=== PATIENT | male | born 1960 | race African-American/Black ===

== ENCOUNTER 2016-04-14 17:18 | Emergency (ER) | payer MEDICAID ==
[2016-04-14 17:18] VITALS: BP 190/104
== END 2016-04-14 19:46 | disposition left against medical advice (07) ==
LOC: ER 17:18
DX: Z53.21 Procedure and treatment not carried out due to patient leaving prior to being seen by health care provider (principal)

== ENCOUNTER 2016-04-27 12:49 | Emergency (ER) | payer MEDICAID ==
[2016-04-27] MEDS ORDERED: LABETALOL HCL 5 MG/ML VIAL IV ONE ×2 (13:03→13:04)
[2016-04-27] MEDS ORDERED: hydrALAZINE HCL 20 MG/ML VIAL ONE ×2 (13:11→13:47)
[2016-04-27] MEDS ORDERED: hydrALAZINE HCL 20 MG/ML VIAL IV ONE (13:15)
[2016-04-27] MEDS ORDERED: MIDAZOLAM HCL/PF 5 MG/ML VIAL ONE (13:16)
[2016-04-27 13:25] LABS: Hematocrit 43.4 % (42.0-52.0); Hemoglobin 13.4 gm/dL (13.5-18.0); Mean Cell Volume 68.3 fl (78-100); Mean Corpuscular Hemoglobin 21.1 pg (27-31); Mean Corpuscular Hgb Conc 30.9 g/dl (32-36); Neutrophil # 2.2 K/mm3 (1.3-6.0); Neutrophil % 38.2 % (42-75.0); Platelet Count 226 K/mm3 (150-450); Red Blood Count 6.35 M/mm3 (4.7-6.0); Red Cell Distribution Width 17.8 % (11.5-14.0); White Blood Count 5.9 K/mm3 (4.0-10.5)
--- NOTE | 2016-04-27 13:28 | ERNOTE ---
Neuro HPI ER Record Date of Service: 04/27/16 Presenting Symptoms: weakness, numbness, parasthesia, difficulty walking Time Seen by Provider: 04/27/16 12:53 Source: patient, family - Fiance Immunizations: IMMUNIZATION HX Immunizations Up to Date Yes History of Influenza Vaccine No Hx Pneumococcal Vaccination No Allergies/Adverse Reactions: Allergies Allergy/AdvReac Type Severity Reaction Status Date / Time No Known Allergies Allergy Verified 08/08/15 12:53 Home Medications: HOME MEDICATIONS Atenolol [Tenormin] 25 mg PO DAILY 08/03/15 [Last Taken Unknown] Lisinopril 5 mg PO DAILY 08/03/15 [Last Taken Unknown] cloNIDine [Catapres-Tts 1] 1 each PO DAILY 08/03/15 [Last Taken Unknown] Cephalexin Monohydrate [Keflex] 1,000 mg PO BID #40 cap 08/04/15 [Last Taken Unknown] Hydrocodone/Acetaminophen [[place] 5-325 Tablet] 1 - 2 tab PO Q6H PRN #16 tab 11/11 [Last Taken Unknown] traMADol HCL [Ultram] 50 mg PO QID PRN #20 tab 08/08/15 [Last Taken Unknown] - History of Present Illness Date (Duration): 04/27/16 Onset: upon waking Severity: moderate - Character of Deficits New weakness: Present: RUE, RLE Altered sensation: Present: RUE, RLE Baseline Cognition: Present: alert, oriented x 4 Baseline Gait: Present: unable to walk Review of Systems - Review of Systems Constitutional: Absent: fever, chills, diaphoresis, weakness, fatigue Respiratory: Absent: shortness of breath, cough, orthopnea, wheezing Cardiology: Absent: palpitations, syncope, edema All Other Systems: All systems neg except as marked - Patient's Past Medical History Patient History - Medical: No pertinent hx Patient History - Cardiac/Respiratory: Hypertension Patient History - Cancer: No Hx of Cancer Patient History - Surgical Procedures: Other Patient History - Other: None - Social History Living Situations: home Alcohol Use: rarely Drug Use: none - Immunizations Immunizations Up to Date: Yes Hx Pneumococcal Vaccination: No History of Influenza Vaccine: No Physical Exam - Physical Exam General Appearance: Present: wd/wn, alert, no apparent distress Eye Exam: PERRL: bilateral, EOMI: bilateral Ears, Nose, Throat: Present: normal ENT inspection, hearing grossly normal, normal pharynx Neck: Present: normal inspection, nontender Respiratory: Present: no respiratory distress, normal breath sounds, no accessory muscle use, chest nontender, lungs clear Cardiovascular/Chest: Present: regular rate, rhythm, no murmur, normal peripheral pulses Gastrointestinal/Abdominal: Present: normal bowel sounds, nontender, nondistended, soft, no organomegaly Back Exam: Present: normal inspection, normal range of motion, no CVA tenderness , no vertebral tenderness Extremity Exam: Present: normal inspection, non-tender, no edema Neurological Exam: Present: alert, oriented, normal mood/affect, motor weakness Skin Exam: Present: normal color, warm/dry Lymphatic Exam: Present: no adenopathy [place] Coma Scale - Assess Eye Opening: Spontaneous Motor: Obeys Commands Verbal: Confused - Total Coma Scale Total: 14 Initial Stroke Assessment - Date/Time of assessment Stroke Scale Date: 04/27/16 Stroke Scale Time: 13:55 - NIH Stroke Scale Level of Consciousness: Drowsy LOC Questions (Year and Age): Answers both correctly LOC Commands (open/close eyes/fist): Performs both correctly Lateral Gaze Paresis: None Visual Field Loss: No visual loss Right Arm Motor (10 sec hold): Drift, effort made Left Arm Motor (10 sec hold): No drift Right Leg Motor (5 sec hold): Drift, effort made Left Leg Motor (5 sec hold): No drift Limb Ataxia (finger/nose heel/liu): Untestable Sensory Loss (pinprick arms/legs/face): Mild, aware yet dulled Language Aphasia (description/naming/reading): Mild, yet understandable Dysarthria (speech clarity): Normal articulation Neglect Inattention (visual/tactile/auditory/spatial/person): No neglect ED Progress - Vital Signs Patient's Vital Signs:: I have reviewed the patient's vital signs. - EKG EKG: NSR, nonspecific ST T wave changes EKG read: Interp. by me EKG Comments: hr 55 - CT/Ultrasound CT/Ultrasound Narrative: Acute left traumatic head bleed measuring 2 cm without any midline shift - Transfer of Care Expected Disposition: Transfer - Dr.Vanheukolm Fischer Clinical Impression: CVA (cerebrovascular accident due to intracerebral hemorrhage) Qualifiers: Intracerebral hemorrhage etiology: nontraumatic Cerebral hemorrhage location: unspecified cerebral location Laterality: left Qualified Code(s): I61.9 - Nontraumatic intracerebral hemorrhage, unspecified - Departure Disposition: [facility] Condition: Stable - Critical Care Total Time (mins): 60
[2016-04-27] MEDS ORDERED: NITROPRUSSIDE SODIUM 50 MG in DEXTROSE 5 % IN WATER 500 ML IV PRN ×2 (13:32)
[2016-04-27 13:33] LABS: Prothrombin Time (Patient) 11.5 Seconds (9.4-11.4)
[2016-04-27 13:34] LABS: INR 1.11 INR (0.90-1.10); Partial Thrombolplastin Time 28.7 Seconds (24-32)
[2016-04-27 13:39] LABS: Albumin * 3.6 gm/dl (3.4-5.0); Anion Gap 9.4 mmol/L (6.8-13.8); BUN/Creatinine Ratio 12.3 (9.0-21.6); Bilirubin, Total 0.9 mg/dL (0.0-1.1); Ca. Corrected For Albumin 9.1 mg/dL (8.4-10.2); Calcium * 9.1 mg/dL (7.9-10.9); Carbon Dioxide 29.3 mmol/L (24-32.6); Potassium 3.7 mmol/L (3.4-4.6); Total Protein 7.4 gm/dL (6.2-8.2)
[2016-04-27] MEDS ORDERED: NORMAL SALINE 1,000 ML IV ONE (13:51)
[2016-04-27 13:53] VITALS: BP 166/88
[2016-04-27] MEDS ORDERED: ONDANSETRON HCL/PF 2 MG/ML VIAL ONE (14:04)
[2016-04-27] MEDS ORDERED: ONDANSETRON HCL/PF 2 MG/ML VIAL IV ONE (14:05)
== END 2016-04-27 14:20 | disposition short-term general hospital (02) ==
LOC: ER 12:49
DX: I61.9 Nontraumatic intracerebral hemorrhage, unspecified (principal); G81.91 Hemiplegia, unspecified affecting right dominant side; I67.4 Hypertensive encephalopathy

== ENCOUNTER 2020-01-09 19:01 | Observation (INO) ==
[2020-01-09] MEDS ORDERED: LABETALOL HCL 5 MG/ML VIAL IV ONE ×4 (19:11→23:34)
[2020-01-09] MEDS ORDERED: NICARDIPINE HCL 25 MG in NORMAL SALINE 240 ML IV PRN (19:17)
--- NOTE | 2020-01-09 19:21 | ERNOTE ---
Neuro HPI ER Record Date of Service: 01/09/20 Presenting Symptoms: impaired speech Time Seen by Provider: 01/09/20 19:15 Source: patient Exam Limitations: clinical condition Immunizations: IMMUNIZATION HX Immunizations Up to Date Yes History of Influenza Vaccine No Hx Pneumococcal Vaccination No Allergies/Adverse Reactions: Allergies Allergy/AdvReac Type Severity Reaction Status Date / Time No Known Allergies Allergy Verified 01/09/20 19:19 Home Medications: HOME MEDICATIONS NK 01/09/20 [Last Taken Unknown] - History of Present Illness Narrative: Patient presents via EMS with headache and trouble with speech. He is a difficult historian coupled with speech abnormality. He has had a headache all day, top of head. No trauma. He has had difficulty with speech for two hours. He is not sure how he knows that but friends at the house he was at think they noted it 2 hours ago. He thinks it may have been there earlier today as well but not as bad. No Cp or SOB. No focal N/T/W. Nothing makes this better or worse. Has not seen anyone else for this. EMS brought the patient to the ED. Onset: other - see above Severity: moderate - Character of Deficits New weakness: Present: other - denies weakness in extremities Additional Deficits: Present: impaired speech. Absent: vision problems, difficulty swallowing Baseline Gait: Present: walks w/o assistance Associated Symptoms: Reports: headache. Denies: fever/chills, chest pain, neck/back pain, seizure, decreased responsiveness Prior Treament: Reports: other - apparently does not take his BP medications, medication non-compliant. Denies: recently seen Review of Systems - Narrative Narrative: unable to obtain in entirety due to speech difficulty and clinical condition Medical History (Last Reviewed 01/09/20 @ 19:43 by Agustin Bermudez MD) Intracerebral hemorrhage (Acute) Onset Date: ~04/27/16 Hypertension (Chronic) Onset Date: Unknown Surgical History: Surgical History (Last Reviewed 01/09/20 @ 19:43 by Agustin Bermudez MD) H/O left knee surgery (Acute) History of ankle surgery Onset Date: ~1979 left ankle Family History: Family History (Last Reviewed 01/09/20 @ 19:43 by Agustin Bermudez MD) Father Myocardial infarction Mother , age 50 CVA (cerebral vascular accident) Social History: (Last Reviewed 01/09/20 @ 19:43 by Agustin Bermudez MD) Social History: snf: No Marital status: single lives independently: Yes current occupational status: employed current occupation: computer information science professor Highest education level completed: some college, no degree Service: No Tobacco: Smoking Status: Never smoker Alcohol: alcohol intake: never Substance Use: substance use type: does not use Dietary Habits: caffeine: No Physical Exam - Physical Exam General Appearance: Present: alert, no apparent distress Head Exam: Present: normal inspection, no evidence of injury Eye Exam: Normal inspection: bilateral, PERRL: bilateral Ears, Nose, Throat: Present: normal ENT inspection Neck: Present: normal inspection Respiratory: Present: no respiratory distress, normal breath sounds, no accessory muscle use, lungs clear Cardiovascular/Chest: Present: regular rate, rhythm, normal peripheral pulses Gastrointestinal/Abdominal: Present: normal bowel sounds, nontender, nondistended, soft Back Exam: Absent: CVA tenderness (R), CVA tenderness (L) Extremity Exam: Present: no edema, other - no deformity Neurological Exam: Present: alert, other - He has dysarticulate speech. No other clear acute cranial nerve deficits. No clear pronator drift or dysmetria. Can hold both legs off the bed against gravity. NIH - 2 Skin Exam: Present: normal color, warm/dry Progress - Results and Orders Patient's Lab Results:: I have reviewed the patient's lab results. - Vital Signs Patient's Vital Signs:: I have reviewed the patient's vital signs. Vital Signs: Vital Signs 01/09/20 19:14 01/09/20 19:20 Temperature 36.9 C Pulse Rate 59 L 58 L Respiratory Rate 15 Blood Pressure 223/124 H 211/115 H O2 Sat by Pulse Oximetry 98 - EKG EKG #1 EKG: NSR EKG read: Interp. by me EKG Comments: Sinus bradycardia rate 57. LAFB. Non-specific ST/T wave cahnges, no STEMI noted. Minimally changed from prior. - Progress/Reassessment Chief Complaint: General Assessment Progress Note-Subjective: 01/09/20 20:11 Patient had Labetalol and Nicardepine drip.; With this his BP came down nicely and his speech issues cleared up. He was speaking normally. Transfer not possible d/t bed availability in the region. No SCU beds available here but as his Sx have resolved and his BP has come down he will be taken off the drip and given oral meds and intermittent IV meds. This was discussed with Dr Peguero who is agreeable and will see the patient. No signs of ICH or ACS. Sx resolved. Not a candidate for tPA given BP, resolved Sx and prior ICH. Patient is agreeable. Departure Clinical Impression: HTN (hypertension), Hypertensive crisis, Difficulty with speech, Non compliance w medication regimen - Departure Disposition: Still a patient Condition: Fair
[2020-01-09 19:35] LABS: Hematocrit 41.9 % (42.0-52.0); Hemoglobin 12.6 gm/dL (13.5-18.0); Mean Cell Volume 71.7 fl (78-100); Mean Corpuscular Hemoglobin 21.6 pg (27-31); Mean Corpuscular Hgb Conc 30.1 g/dl (32-36); Neutrophil # 3.8 K/mm3 (1.3-6.0); Neutrophil % 55.7 % (42-75.0); Platelet Count 252 K/mm3 (150-450); Red Blood Count 5.84 M/mm3 (4.7-6.0); Red Cell Distribution Width 15.4 % (11.5-14.0); White Blood Count 6.7 K/mm3 (4.0-10.5)
[2020-01-09 19:42] LABS: INR 1.18 INR (0.92-1.08); Partial Thrombolplastin Time 26.6 Seconds (24-32); Prothrombin Time (Patient) 11.6 Seconds (9.1-10.7)
[2020-01-09 19:48] LABS: Albumin * 3.5 gm/dl (3.4-5.0); Anion Gap 12.7 mmol/L (6.8-13.8); BUN/Creatinine Ratio 9.2 (9.0-21.6); Bilirubin, Total 0.4 mg/dL (0.0-1.1); Ca. Corrected For Albumin 9.1 mg/dL (8.4-10.2); Carbon Dioxide 29.7 mmol/L (24-32.6); Potassium 3.4 mmol/L (3.4-4.6); Total Protein 7.7 gm/dL (6.2-8.2); Troponin I 0.076 ng/mL (0.00-0.10)
[2020-01-09] MEDS ORDERED: ACETAMINOPHEN 500 MG TABLET PO PRN (20:25)
[2020-01-09] MEDS ORDERED: ACETAMINOPHEN 325 MG TABLET PO PRN (20:25)
[2020-01-09] MEDS: METOPROLOL TARTRATE 50 MG TABLET PO SCH (20:32)
--- NOTE | 2020-01-09 20:54 | HP ---
Chief Complaint - Chief Complaint Date of Service: 01/09/20 Time of Service: 20:41 Chief Complaint: I had a headache and slurred speech earlier today History of Present Illness: 59-year-old -Gabonese male with past medical history of hypertension, intracerebral hemorrhage, and chronic kidney disease was brought to the ER by EMS for evaluation of significantly elevated blood pressure and headache. Patient reports earlier while doing outdoor chores with his friend he suddenly developed slurred speech and difficulty communicating. His friend became alarmed when suddenly the patient could not express himself and was presenting strokelike symptoms. The patient reports developing a an excruciating headache shortly after his symptoms began. He reports going home shortly after that but his headache intensified and he slurred speech got worse. Patient also developed weakness in his right hand. EMS was called and when they arrived they discovered a blood pressure above 230/110. The patient was administered antihypertensive and was taken to the ER. Once in the ER the patient was diagnosed with a hypertensive emergency and was started on a drip of labetalol, with that his blood pressure slightly improved and he has neurological symptoms resolved. The patient underwent a head CT which revealed only chronic findings and was negative for any acute changes. He EKG was also non-concerning. The patient denied any shortness of breath or chest pain but continued to complain of headache. Now he reports his headache is slightly improving. The patient had a similar episode 2 years ago and was discovered to have a intracerebral hemorrhage, he was subsequently transferred to [facility] where he was treated for his bleed and a hypertensive emergency. Since then the patient has not been going to the doctor and has stopped taking his medications several months ago due to an inability to refill his medications. He does not even recall which medications he was taking. The patient reports difficulty with transportation to go to the doctor regularly due to the fact that his license was revoked and he is unable to drive, he says he does not have anybody to take him to the doctor making follow-up difficult. Medical History (Last Reviewed 01/09/20 @ 19:43 by Agustin Bermudez MD) Intracerebral hemorrhage (Acute) Onset Date: ~04/27/16 Hypertension (Chronic) Onset Date: Unknown Surgical History: Surgical History (Last Reviewed 01/09/20 @ 19:43 by Agustin Bermudez MD) H/O left knee surgery (Acute) History of ankle surgery Onset Date: ~1979 left ankle Family History: Family History (Last Reviewed 01/09/20 @ 19:43 by Agustin Bermudez MD) Father Myocardial infarction Mother , age 50 CVA (cerebral vascular accident) Social History: (Last Reviewed 01/09/20 @ 19:43 by Agustin Bermudez MD) Social History: shelter: No Marital status: single lives independently: Yes current occupational status: employed current occupation: computer sciences professor Highest education level completed: some college, no degree Service: No Tobacco: Smoking Status: Never smoker Alcohol: alcohol intake: never Substance Use: substance use type: does not use Dietary Habits: caffeine: No Peds Patient Hx - Developmental: No Pertinent Hx Peds Patient Hx - Medical: No Pertinent Hx Peds Patient Hx - Cardiac/Respiratory: No Pertinent Hx Peds Patient Hx - Surgical: No Surgical History Patient History - Cancer: No Hx of Cancer Review Of Systems (GEN) - Review of Systems Generalized/Overall Review: Present: No Symptoms Reported EENTM: Present: No Symptoms Reported Respiratory: Present: No Symptoms Reported Cardiac: Present: No Symptoms Reported Abdominal: Present: No Symptoms Reported Genitourinary: Present: No Symptoms Reported Musculoskeletal: Present: No Symptoms Reported Neurological: Present: Headache, Weakness - Weakness in right upper extremity, Other - Slurred speech Skin: Present: No Symptoms Reported Endocrine: Present: No Symptoms Reported Immunizations: IMMUNIZATION HX Immunizations Up to Date Yes History of Influenza Vaccine No Hx Pneumococcal Vaccination No Allergies/Adverse Reactions: Allergies Allergy/AdvReac Type Severity Reaction Status Date / Time No Known Allergies Allergy Verified 01/09/20 19:19 Home Medications: HOME MEDICATIONS NK 01/09/20 [Last Taken Unknown] Exam - Exam Vital Signs: Vital Signs - Last Taken Temp 36.7 C 01/09/20 20:33 Pulse 66 01/09/20 20:33 Resp 17 01/09/20 20:33 BP 186/108 H 01/09/20 20:33 Pulse Ox 98 01/09/20 20:33 Constitutional: Present: Alert, Oriented x3, Cooperative, Well developed, Well nourished, No distress ENT Exam: Present: normal ENT inspection, hearing grossly normal, pharynx normal, TMs normal Eye Exam: bilateral eye: normal inspection, PERRL, EOMI Neck: Present: non-tender, full range of motion, supple, normal inspection, trachea midline Back Exam: Present: normal inspection, no CVA tenderness, no vertebral tenderness Breasts: Present: Exam deferred Respiratory: Present: chest non-tender, lungs clear, normal breath sounds, no respiratory distress, no accessory muscle use Cardiovascular/Chest: Present: normal peripheral pulses, regular rate, rhythm, no chest tenderness, no edema, no gallop, no JVD, no murmur, no rub Peripheral Pulses: dorsalis-pedis (R): 3+, dorsalis-pedis (L): 3+ Abdomen: Present: Normal bowel sounds, soft, nontender, nondistended, no rebound tenderness, no hepatospenomegaly, no masses /Rectal: Present: Exam deferred Extremity: Present: normal range of motion, non-tender, normal inspection, no pedal edema, no calf tenderness, normal capillary refill, pelvis stable Skin Exam: Present: normal color, warm/dry, no cyanosis Lymphatic: Present: no adenopathy Neurologic: Present: extension forester II-XII nml as tested, normal cerebellar test, no motor/sensory deficits, alert, normal mood/affect, oriented x 3 Appearance: Present: appropriate appearance, appropriate insight, neat, no memory impairment Eye contact: Present: cooperative, good eye contact, normal speech Thoughts: Present: normal thought pattern, no apparent hallucination Diagnostic Studies: Abnormal Lab Results 01/09/20 01/09/20 01/09/20 Range/Units 19:24 19:24 19:24 Hgb 12.6 L (13.5-18.0) gm/dL Hct 41.9 L (42.0-52.0) % MCV 71.7 L (78-100) fl MCH 21.6 L (27-31) pg MCHC 30.1 L (32-36) g/dl RDW 15.4 H (11.5-14.0) % Monocytes % 10.4 H (0.0-9) % Eosinophils % 4.2 H (0.0-3.0) % PT 11.6 H (9.1-10.7) Seconds INR (Anticoag Therapy) 1.18 H (0.92-1.08) INR Sodium 144 H (132-142) mmol/L Plasma Sodium 144 H (130-142) mmol/L Creatinine 2.40 H (0.4-1.4) mg/dL Est GFR (Non-Af Amer) 36 L D (60-130) mL/min ALT 14 L (19-67) U/L Laboratory Results WBC 6.7 K/mm3 (4.0-10.5) 01/09/20 19:24 RBC 5.84 M/mm3 (4.7-6.0) 01/09/20 19:24 Hgb 12.6 gm/dL (13.5-18.0) L 01/09/20 19:24 Hct 41.9 % (42.0-52.0) L 01/09/20 19:24 MCV 71.7 fl (78-100) L 01/09/20 19:24 MCH 21.6 pg (27-31) L 01/09/20 19:24 MCHC 30.1 g/dl (32-36) L 01/09/20 19:24 RDW 15.4 % (11.5-14.0) H 01/09/20 19:24 Plt Count 252 K/mm3 (150-450) 01/09/20 19:24 Immature Gran % (Auto) 0.30 % (0.001-0.429) 01/09/20 19: Immature Gran # (Auto) 0.02 K/mm3 (0.000-0.0310) 01/09/20 19:24 Neutrophils % 55.7 % (42-75.0) 01/09/20 19:24 Lymphocytes % 28.7 % (20-51) 01/09/20 19:24 Monocytes % 10.4 % (0.0-9) H 01/09/20 19:24 Eosinophils % 4.2 % (0.0-3.0) H 01/09/20 19:24 Basophils % 0.7 % (0.0-1.0) 01/09/20 19:24 Nucleated RBC % 0.0 k/mm3 (0-1) 01/09/20 19: Neutrophils # 3.8 K/mm3 (1.3-6.0) 01/09/20 19:24 Lymphocytes # 1.93 k/mm3 (1.5-3.5) 01/09/20 19:24 Monocytes # 0.7 k/mm3 (0.0-1.0) 10/13/20 19:24 Eosinophils # 0.3 k/mm3 (0.0-0.7) 01/09/20 19:24 Absolute Basophils 0.1 k/mm3 (0.0-0.1) 01/09/20 19:24 PT 11.6 Seconds (9.1-10.7) H 01/09/20 19:24 INR (Anticoag Therapy) 1.18 INR (0.92-1.08) H 01/09/20 19:24 PTT ([place]) 26.6 Seconds (24-32) 01/09/20 19:24 Sodium 144 mmol/L (132-142) H 01/09/20 19:24 Plasma Sodium 144 mmol/L (130-142) H 01/09/20 19:24 Potassium 3.4 mmol/L (3.4-4.6) 01/09/20 19:24 Chloride 105 mmol/L (97-106) 01/09/20 19:24 Carbon Dioxide 29.7 mmol/L (24-32.6) 01/09/20 19:24 Anion Gap 12.7 mmol/L (6.8-13.8) 01/09/20 19:24 BUN 22 mg/dL (6-23) 01/09/20 19:24 Creatinine 2.40 mg/dL (0.4-1.4) H 01/09/20 19:24 Est GFR (Non-Af Amer) 36 mL/min (60-130) L D 01/09/20 19:24 BUN/Creatinine Ratio 9.2 (9.0-21.6) 01/09/20 19:24 Random Glucose 108 mg/dL (70-110) 01/09/20 19:24 Calcium 9.0 mg/dL (7.9-10.9) 01/09/20 19:24 Calcium Adj for Albumin 9.1 mg/dL (8.4-10.2) 01/09/20 19:24 Total Bilirubin 0.4 mg/dL (0.0-1.1) 01/09/20 19:24 AST 11 U/L (0-48) 01/09/20 19:24 ALT 14 U/L (19-67) L 01/09/20 19:24 Alkaline Phosphatase 87 U/L (50-170) 01/09/20 19:24 Troponin I 0.076 ng/mL (0.00-0.10) 01/09/20 19:24 Total Protein 7.7 gm/dL (6.2-8.2) 01/09/20 19:24 Albumin 3.5 gm/dl (3.4-5.0) 01/09/20 19:24 Ethyl Alcohol 3.0 mg/dL (0.0-10.0) 01/09/20 19:24 Assessment/Plan - Narrative Narrative: Patient was evaluated medical chart was reviewed and decision to admit for observation on [facility] unit for diagnosis of hypertensive emergency was made. Patient's head CT only revealed chronic changes such as small ischemic vessel disease and an old lacunar infarct. There was no evidence of acute bleed or acute ischemic stroke. His neurological symptoms have completely resolved and he reports significant improvement of the headache. Patient was originally placed on a Nicardipine drip and was treated with IV labetalol while in the ER and since then his blood pressure has improved. However [facility] his blood pressure has slightly increased, will treat him with p.o. antihypertensives in order to bring his blood pressure under control. During the admission the patient was counseled on the importance of keeping follow-up appointments and taking his medication as prescribed in order to prevent recurrence of in hypertensive emergency and worsening of his kidney function. He was informed that he was found to have chronic kidney disease most likely secondary to his hypertension. - Assessment/Plan (1) Chronic hypertension Problem: Acute (2) Hypertensive crisis Problem: Acute (3) TIA (transient ischemic attack) Problem: Acute (4) CKD (chronic kidney disease) stage 3, GFR 30-59 ml/min Problem: Acute (5) Non-compliant patient Problem: Acute (6) Small vessel disease Problem: Acute (7) Old lacunar stroke without late effect Problem: Acute (8) Hypernatremia Problem: Acute
[2020-01-09] MEDS ORDERED: ACETAMINOPHEN 500 MG TABLET ONE (20:55)
[2020-01-09] MEDS: FAMOTIDINE 20 MG TABLET PO SCH (21:05)
[2020-01-09 21:22] LABS: Urine Bilirubin Negative (NEGATIVE); Urine Blood Negative /ul (NEGATIVE); Urine Ketone Negative (NEGATIVE); Urine Nitrite Negative (NEGATIVE); Urine Protein 30 mg/dL (NEGATIVE); Urine Urobilinogen Normal (NORMAL)
[2020-01-09 21:35] LABS: Urine Appearance Clear (CLEAR); Urine Color Yellow; Urine RBC None Seen /hpf (0-5); Urine WBC TRACE /hpf (0-5)
[2020-01-09 21:36] LABS: Urine Bacteria TRACE; Urine Hyaline Cast TRACE /LPF
[2020-01-09] MEDS ORDERED: amLODIPine BESYLATE 10 MG TABLET PO ONE (21:42)
[2020-01-09] MEDS ORDERED: LABETALOL HCL 5 MG/ML VIAL IV PRN ×2 (23:10)
[2020-01-09] MEDS ORDERED: cloNIDine 0.1 MG PATCH.TDWK TD SCH (23:15)
[2020-01-10] MEDS: METOPROLOL TARTRATE 50 MG TABLET PO SCH (08:07)
[2020-01-10] MEDS: FAMOTIDINE 20 MG TABLET PO SCH (08:08)
[2020-01-10] MEDS ORDERED: cloNIDine 0.1 MG PATCH.TDWK TD SCH (08:15)
[2020-01-10] MEDS ORDERED: LISINOPRIL 20 MG TABLET PO SCH (09:15)
[2020-01-10] MEDS ORDERED: amLODIPine BESYLATE 10 MG TABLET PO SCH (09:15)
[2020-01-10 14:33] VITALS: BP 159/93
--- NOTE | 2020-01-10 15:04 | DS ---
(1) Chronic hypertension Problem: Chronic (2) Hypertensive crisis Problem: Resolved (3) TIA (transient ischemic attack) Problem: Resolved (4) CKD (chronic kidney disease) stage 3, GFR 30-59 ml/min Problem: Chronic (5) Non-compliant patient Problem: Chronic (6) Small vessel disease Problem: Chronic (7) Old lacunar stroke without late effect Problem: Chronic (8) Hypernatremia Problem: Acute Date of Discharge:: 01/10/20 Hospital Course: 59-year-old -[place] male admitted for a hypertensive crisis and a TIA was evaluated bedside was found to be afebrile and in no acute distress. After managing the patient's blood pressure with multiple agents his blood pressure has improved significantly. He also reports improvement in his headache. The patient's neurological symptoms have also resolved although his cognitive function is a little bit delayed, it is difficult to determine if this is new or if the patient is at his baseline. However after confirming improvement of his blood pressure we have decided to discharge the patient home with instructions to continue taking the prescribed oral antihypertensives and to establish with a PCP. It was explained to the patient that it is very important that he gets another doctor to manage his hypertension. It was explained to him that this is particularly important to avoid worsening of his chronic kidney disease which is most likely due to uncontrolled blood pressure. An appointment was set up with myself for him to follow-up with me in the internal medicine clinic here at [facility]. He will be sent home with a prescription for all his oral antihypertensive, we reinitiated all of his previous antihypertensives. Patient has issues with insurance but I will work with correctional counselor/case manager to try to find resolution so that he is able to establish with a doctor and that the patient can continue follow-up with condition. Procedures Performed: none Results and Findings: Lab Pending Results 01/09/20 19:24: WBC 6.7, RBC 5.84, Hgb 12.6 L, Hct 41.9 L, MCV 71.7 L, MCH 21.6 L, MCHC 30.1 L, RDW 15.4 H, Plt Count 252, Immature Gran % (Auto) 0.30, Immature Gran # (Auto) 0.02, Neutrophils % 55.7, Lymphocytes % 28.7, Monocytes % 10.4 H, Eosinophils % 4.2 H, Basophils % 0.7, Nucleated RBC % 0.0, Neutrophils # 3.8, Lymphocytes # 1.93, Monocytes # 0.7, Eosinophils # 0.3, Absolute Basophils 0.1 01/09/20 19:24: Sodium 144 H, Plasma Sodium 144 H, Potassium 3.4, Chloride 105, Carbon Dioxide 29.7, Anion Gap 12.7, BUN 22, Creatinine 2.40 H, Est GFR (Non-Af Amer) 36 L D, BUN/Creatinine Ratio 9.2, Random Glucose 108, Calcium 9.0, Calcium Adj for Albumin 9.1, Total Bilirubin 0.4, AST 11, ALT 14 L, Alkaline Phosphatase 87, Troponin I 0.076, Total Protein 7.7, Albumin 3.5, Ethyl Alcohol 3.0 01/09/20 19:24: PT 11.6 H, INR (Anticoag Therapy) 1.18 H, PTT (Rafia) 26.6 01/09/20 20:35: Urine Color Yellow, Urine Appearance Clear, Urine pH 7.0, Ur Specific [place] 1.020, Urine Protein 30 H, Urine Glucose (UA) Negative, Urine Ketones Negative, Urine Blood Negative, Urine Nitrate Negative, Urine Bilirubin Negative, Prot Sulfosalicylic Acd 1+, Urine Urobilinogen Normal, Ur Leukocyte Esterase Negative, Urine RBC None seen, Urine WBC Trace, Ur Epithelial Cells None seen, Urine Bacteria Trace, Hyaline Casts Trace, Urine Culture Comments No culture indicated Discharge Location: Home Disposition: Home self-care Condition: Fair Face to Face Encounter completed per [facility] Guidelines: No Discharge Activity: Activity as tolerated Discharge Diet: Low salt Problem Oriented Discharge Instructions to Patient/Family: Hypertension, Adult, [id number] Additional Patient Instructions (free text): Follow-up appointment is with Dr. Peguero on January 14 at 2:30 PM. Will need to bring $100.00 for doctor visit as your insurance does not cover [facility] clinic patients, or be set up with [facility] in [place] or [place] . Prescriptions (Any new or edited meds): Metoprolol Tartrate [Lopressor] 50 mg PO Q12H #60 tab Transmission Status: Received by [facility], [place], [place] amLODIPine BESYLATE [Norvasc] 10 mg PO DAILY #90 tab Transmission Status: Received by [facility], [place], [place] Lisinopril [Zestril] 20 mg PO DAILY #90 tab Transmission Status: Received by [facility], [place], [place] Complete Home Medications List: Complete Home Medication List: Lisinopril [Zestril] 20 mg PO DAILY #90 tab 01/10/20 Metoprolol Tartrate [Lopressor] 50 mg PO Q12H #60 tab 01/10/20 amLODIPine BESYLATE [Norvasc] 10 mg PO DAILY #90 tab 01/10/20
== END 2020-01-10 15:45 | disposition home or self-care (01) ==
LOC: MS 19:01 → ER 19:01 → MS 20:30
PROVIDERS: ADMIT Family Medicine; ATTEND Family Medicine

== ENCOUNTER 2020-02-14 14:28 | Observation (INO) ==
[2020-02-14] MEDS ORDERED: LABETALOL HCL 5 MG/ML VIAL IV ONE (15:15)
--- NOTE | 2020-02-14 15:16 | ERNOTE ---
Headache ER HPI - Narrative Date of Service: 02/14/20 - General Presenting Symptoms: headache Time Seen by Provider: 02/14/20 15:02 Source: patient, RN notes reviewed, old records Exam Limitations: no limitations - Immun/Allergies/Home Medications Immunizations: IMMUNIZATION HX Immunizations Up to Date Yes History of Influenza Vaccine No Hx Pneumococcal Vaccination No Allergies/Adverse Reactions: Allergies No Known Allergies Allergy (Verified 01/09/20 21:05) Home Medications: HOME MEDICATIONS Lisinopril [Zestril] 20 mg PO DAILY #90 tab 01/10/20 [Last Taken Unknown] Metoprolol Tartrate [Lopressor] 50 mg PO Q12H #60 tab 01/10/20 [Last Taken Unknown] amLODIPine BESYLATE [Norvasc] 10 mg PO DAILY #90 tab 01/10/20 [Last Taken Unknown] - History of Present Illness Narrative: Nelson is a 59-year-old male who presents to the emergency department for headache. He reports this has been going on for 2 days. He believes it is because of elevated blood pressure. He was hospitalized for hypertension just over a month ago. He missed his follow-up appointment but reports that he has been taking his blood pressure medications as prescribed. He has not taken anything for his headache. He also reports having a cough, fatigue and body aches. He has been around a friend who tested positive for COVID-19. Timing of Headache: gradual, still present, constant Context Headache: Present: new onset. Absent: recent head injury > 24 hrs Headache frequency: Present: no recent headache Associated Symptoms: Reports: fatigue, light-headedness, dizziness. Denies: fever/chills, nausea, vomiting, nasal congestion, nasal drainage, vision changes Exacerbated by:: Denies: light, noise, movement Prior Treament: Reports: recently seen, similar symptoms before Review of Systems - Review of Systems Constitutional: Present: fatigue, malaise. Absent: fever, chills EYE: Absent: eye pain, vision changes ENT: Absent: ear pain, nose congestion, nasal drainage, sore throat Respiratory: Present: cough. Absent: shortness of breath Cardiology: Absent: chest pain, edema Gastrointestinal/Abdominal: Absent: nausea, vomiting, abdominal pain Genitourinary: Present: no symptoms reported Musculoskeletal: Present: muscle pain, joint pain Skin: Absent: rash, lesions Neurological: Present: headache. Absent: dizziness/light-headedness Endocrine: Present: no symptoms reported Hematologic/Lymphatic: Absent: easy bruising, easy bleeding Psych: Present: no symptoms reported Medical History (Last Reviewed 02/14/20 @ 17:00 by Kathryn Weir NP) Intracerebral hemorrhage (Acute) Onset Date: ~04/27/16 Hypertension (Chronic) Onset Date: Unknown CVA (cerebral vascular accident) Surgical History: Surgical History (Last Reviewed 02/14/20 @ 17:00 by Kathryn Weir NP) H/O left knee surgery (Acute) History of ankle surgery Onset Date: ~1979 left ankle Family History: Family History (Last Reviewed 02/14/20 @ 17:00 by Kathryn Weir NP) Father Myocardial infarction Mother , age 50 CVA (cerebral vascular accident) Social History: (Last Reviewed 02/14/20 @ 17:00 by Kathryn Weir NP) Social History: chcf: No Marital status: single lives independently: Yes current occupational status: employed current occupation: cnc operator programmer Highest level of school completed/degree received: some college, no degree Service: No Tobacco: Smoking Status: Never smoker Alcohol: alcohol intake: current alcohol intake frequency: holiday/special occasion counseling given: No Substance Use: substance use type: does not use counseling given: Yes counseling given comment: discussed with patient on use on illegal drugs Dietary Habits: caffeine: No Physical Exam - Physical Exam General Appearance: Present: wd/wn, alert, other - In no acute distress but appears to not feel well, fatigued, yawns frequently Head Exam: Present: normal inspection Eye Exam: Normal inspection: bilateral, PERRL: bilateral, EOMI: bilateral Ears, Nose, Throat: Present: normal ENT inspection, normal pharynx Neck: Present: normal inspection, nontender, supple, full range of motion Respiratory: Present: no respiratory distress, normal breath sounds, no accessory muscle use, lungs clear Cardiovascular/Chest: Present: no murmur, bradycardia Extremity Exam: Present: normal inspection, no edema Neurological Exam: Present: alert, oriented, no motor/sensory deficits, other - flat affect. Absent: normal mood/affect Skin Exam: Present: normal color, warm/dry Progress - Results and Orders Patient's Lab Results:: I have reviewed the patient's lab results. - Vital Signs Patient's Vital Signs:: I have reviewed the patient's vital signs. Vital Signs: Vital Signs 02/14/20 14:40 Temperature 36.4 C Pulse Rate 57 L Respiratory Rate 16 Blood Pressure 171/107 H O2 Sat by Pulse Oximetry 98 - EKG EKG #1 EKG: NSR EKG read: Reviewed by me - Progress/Reassessment Chief Complaint: Headache Progress:: Improved Plan - Plan Plan: The patient's blood pressure was unchanged after labetolol IVP. He was then given Hydralazine with some improvement. He continued to report a headache and was given IV Tylenol. His lab work shows worsening of his renal failure. He has also had a liter of IV NS. Dr. Burnette was contacted and agreed to admit the patient. A COVID test was done prior to the patient going to med/surg and is positive. Departure Clinical Impression: Hypertensive urgency, COVID-19 Acute on chronic renal failure Qualifiers: Acute renal failure type: unspecified Chronic kidney disease stage: unspecified stage Qualified Code(s): N17.9 - Acute kidney failure, unspecified - Departure Disposition: Still a patient Condition: Stable
[2020-02-14] MEDS ORDERED: NORMAL SALINE 1,000 ML IV ONE (15:29)
[2020-02-14 15:39] LABS: Hematocrit 47.3 % (42.0-52.0); Hemoglobin 14.2 gm/dL (13.5-18.0); Platelet Count 192 K/mm3 (150-450); Red Blood Count 6.76 M/mm3 (4.7-6.0); Red Cell Distribution Width 18.3 % (11.5-14.0)
[2020-02-14 15:43] LABS: Total Cells Counted 100
[2020-02-14 15:52] LABS: Albumin * 3.9 gm/dl (3.4-5.0); Anion Gap 12.2 mmol/L (6.8-13.8); BUN/Creatinine Ratio 9.5 (9.0-21.6); Bilirubin, Total 0.6 mg/dL (0.0-1.1); Ca. Corrected For Albumin 9.1 mg/dL (8.4-10.2); Calcium * 9.3 mg/dL (7.9-10.9); Carbon Dioxide 27.1 mmol/L (24-32.6); Potassium 4.3 mmol/L (3.4-4.6); Total Protein 8.4 gm/dL (6.2-8.2)
[2020-02-14 16:17] LABS: Band 3 % (0-2.0); Eosinophil 2 % (0-3); Lymphocyte 27 % (20-51); Monocyte 30 % (0-9); Neutrophil 38 % (42-75); Neutrophil # 1.9 K/mm3 (1.3-6.0)
[2020-02-14 16:18] LABS: Platelet Estimate Normal (NORMAL)
[2020-02-14] MEDS ORDERED: hydrALAZINE HCL 20 MG/ML VIAL IV ONE (16:19)
[2020-02-14 16:20] LABS: Hypochromia 1+
[2020-02-14 16:21] LABS: Microcytosis 1+; Poikilocytosis 1+
[2020-02-14 17:49] LABS: Urine Bilirubin Negative (NEGATIVE); Urine Blood Negative /ul (NEGATIVE); Urine Ketone Negative (NEGATIVE); Urine Nitrite Negative (NEGATIVE); Urine Protein 30 mg/dL (NEGATIVE); Urine Specific Gravity 1.015 SP.GR. (1.005-1.030); Urine Urobilinogen Normal (NORMAL); Urine pH 6.5 pH (5.0-7.0)
[2020-02-14 18:03] LABS: Urine Barbiturate Negative (NEGATIVE); Urine Benzodiazepines Negative (NEGATIVE); Urine Opiates Negative (NEGATIVE); Urine PCP Negative (NEGATIVE)
[2020-02-14 18:05] LABS: Cocaine Ur Positive (NEGATIVE); Urine THC Positive (NEGATIVE)
[2020-02-14] MEDS ORDERED: ACETAMINOPHEN 1,000 MG/100 ML BTL IV ONE (18:06)
[2020-02-14 18:10] LABS: Urine Appearance Clear (CLEAR); Urine Bacteria None Seen; Urine Color Yellow; Urine Hyaline Cast 0-5 /LPF; Urine RBC None Seen /hpf (0-5); Urine WBC TRACE /hpf (0-5)
[2020-02-14 18:11] LABS: Urine Amorphous Sediment TRACE (NONE-FEW)
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
[2020-02-14] MEDS ORDERED: ACETAMINOPHEN 500 MG TABLET PO PRN (19:31)
[2020-02-14] MEDS ORDERED: METOPROLOL TARTRATE 25 MG TABLET ONE (19:39)
[2020-02-14] MEDS: METOPROLOL TARTRATE 50 MG TABLET PO SCH (19:40)
[2020-02-14 19:49] LABS: Albumin * 3.9 gm/dl (3.4-5.0); Anion Gap 13.3 mmol/L (6.8-13.8); BUN/Creatinine Ratio 10.5 (9.0-21.6); Bilirubin, Total 0.5 mg/dL (0.0-1.1); Ca. Corrected For Albumin 9.1 mg/dL (8.4-10.2); Calcium * 9.3 mg/dL (7.9-10.9); Carbon Dioxide 24.7 mmol/L (24-32.6)
[2020-02-15] MEDS: METOPROLOL TARTRATE 50 MG TABLET PO SCH (06:31)
[2020-02-15] MEDS: amLODIPine BESYLATE 10 MG TABLET PO SCH ×2 (08:07→08:56)
[2020-02-15] MEDS: LISINOPRIL 20 MG TABLET PO SCH ×2 (08:08→08:56)
[2020-02-15] MEDS ORDERED: cloNIDine 0.1 MG PATCH.TDWK TD SCH (08:45)
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
[2020-02-15] MEDS ORDERED: amLODIPine BESYLATE 10 MG TABLET PO SCH (09:00)
[2020-02-15] MEDS ORDERED: LISINOPRIL 20 MG TABLET PO SCH (09:00)
[2020-02-15 11:07] VITALS: BP 157/98
== END 2020-02-15 11:21 | disposition home or self-care (01) ==
LOC: MS 14:28 → ER 14:28 → MS 19:15
PROVIDERS: ADMIT Family Medicine; ATTEND Family Medicine